=== PATIENT | male | born 1945 | race Caucasian/White ===

== ENCOUNTER 2022-01-23 17:14 | Inpatient (IN) | payer MEDICARE, OTHER ==
[~2022-01-23] VITALS: Ht 170.2 cm; Wt 99.4 kg
[2022-01-23 18:08] LABS: MEAN CORPUSCULAR HEMOGLOBIN 30.5 uug (23.8-33.4); MEAN CORPUSCULAR VOLUME 91.8 fL (73.0-96.2); PLATELET COUNT (AUTO) 340 K/uL (152-348)
[2022-01-23 18:26] LABS: HEMATOCRIT 20.2 % (36.7-47.1)
[2022-01-23] MEDS ORDERED: OMEP40CA21 GT (18:46)
[2022-01-23] MEDS ORDERED: HYDR-3972 GT (18:46)
[2022-01-23] MEDS ORDERED: ZINC50TA69 GT (18:46)
[2022-01-23] MEDS ORDERED: CYAN100T44 GT (18:46)
[2022-01-23] MEDS ORDERED: ATOR10TA GT (18:46)
[2022-01-23] MEDS ORDERED: OMEG1CAP55 GT (18:46)
[2022-01-23] MEDS ORDERED: ACET-2154 GT (18:46)
[2022-01-23] MEDS ORDERED: LORA-259 GT (18:46)
[2022-01-23] MEDS ORDERED: EPOE1VIA12 IJ (18:46)
[2022-01-23] MEDS ORDERED: ALBU1.257 NEB (18:46)
[2022-01-23] MEDS ORDERED: ASCO500C6 GT (18:46)
[2022-01-23] MEDS ORDERED: FERR325T30 GT (18:46)
[2022-01-23] MEDS ORDERED: CLON0.1T GT (18:46)
[2022-01-23] MEDS ORDERED: LEVE500T20 GT (18:46)
[2022-01-23] MEDS ORDERED: CHLORHEXIDINE PO (18:46)
[2022-01-23] MEDS ORDERED: INSU100V8 SQ (18:46)
[2022-01-23] MEDS ORDERED: METO-357 GT (18:46)
[2022-01-23] MEDS ORDERED: CALC1TAB30 GT (18:46)
[2022-01-23] MEDS ORDERED: MULT-594 GT (18:46)
[2022-01-23] MEDS ORDERED: SENN-18 GT (18:46)
[2022-01-23] MEDS ORDERED: ACET-73 GT (18:46)
[2022-01-23] MEDS ORDERED: MAGN400O6 GT (18:46)
[2022-01-23] MEDS ORDERED: DOCU100C36 GT (18:46)
[2022-01-23] MEDS ORDERED: INSU100V42 (18:46)
[2022-01-23 19:30] LABS: CARBON DIOXIDE 27 mmol/L (21-32); CHLORIDE 95 mmol/L (98-107); CREATININE 2.3 mg/dL (0.6-1.3); GLUCOSE 100 mg/dL (74-106); POTASSIUM 3.2 mmol/L (3.5-5.1); UREA NITROGEN, BLOOD 55 mg/dL (7-18)
[2022-01-23] MEDS ORDERED: LORAZEPAM 1 MG TABLET GT PRN (22:15)
[2022-01-23] MEDS ORDERED: MAGNESIUM HYDROXIDE 30 ML LIQUID UDC PO PRN (22:15)
[2022-01-23] MEDS ORDERED: HYDROCODONE/APAP 5-325MG TABLET GT PRN (22:15)
[2022-01-23] MEDS ORDERED: DEXTROSE 50% 50 ML DISP.SYRIN IV PRN (22:15)
[2022-01-23] MEDS ORDERED: REMEDY ESSENTIAL ZINC PASTE 113 GM TP PRN (22:15)
[2022-01-23] MEDS ORDERED: ALBUTEROL SULFATE 1.25 MG/3 ML NEBU NEB PRN (22:15)
[2022-01-23 23:30] VITALS: BP 118/55
[2022-01-24] VITALS (8 sets, daily range): BP systolic 104–124; BP diastolic 44–70
[2022-01-24] MEDS ORDERED: ACETAMINOPHEN 325 MG TABLET GT PRN (00:15)
[2022-01-24] MEDS: BLOOD SUGAR DIAGNOSTIC 1 EACH STRIP VI SCH ×5 (01:30→23:50)
[2022-01-24 06:41] LABS: PLATELET COUNT (AUTO) 315 K/uL (152-348)
[2022-01-24 06:46] LABS: MEAN CORPUSCULAR HEMOGLOBIN 30.9 uug (23.8-33.4); MEAN CORPUSCULAR VOLUME 91.3 fL (73.0-96.2)
[2022-01-24 07:33] LABS: ALANINE AMINOTRANSFERASE 9 U/L (16-63); ALKALINE PHOSPHATASE 175 U/L (50-136); ASPARTATE AMINOTRANSFERASE 10 U/L (15-37); BILIRUBIN,DIRECT 0.3 mg/dL (0.0-0.2); BILIRUBIN,TOTAL 0.7 mg/dL (0.2-1.0); CARBON DIOXIDE 29 mmol/L (21-32); CHLORIDE 95 mmol/L (98-107); CREATININE 2.4 mg/dL (0.6-1.3); FERRITIN 2797 ng/mL (26-388); GLUCOSE 119 mg/dL (74-106); MAGNESIUM 2.1 mg/dL (1.8-2.4); POTASSIUM 3.2 mmol/L (3.5-5.1); TOTAL PROTEIN, SERUM 6.9 g/dL (6.4-8.2); UREA NITROGEN, BLOOD 59 mg/dL (7-18)
[2022-01-24] MEDS ORDERED: MAGNESIUM HYDROXIDE 30 ML LIQUID UDC GT PRN (07:41)
[2022-01-24 08:00] LABS: HEMATOCRIT 18.4 % (36.7-47.1)
[2022-01-24 08:24] LABS: IRON, SERUM 38 ug/dL (50-175)
[2022-01-24] MEDS ORDERED: METOPROLOL SUCCINATE XL 50 MG TAB.SR.24H PO SCH (09:00)
[2022-01-24] MEDS ORDERED: levETIRAcetam 500 MG TABLET GT SCH (09:00)
[2022-01-24] MEDS: OMEGA-3 FATTY ACIDS/FISH OIL CAPSULE GT SCH (09:19)
[2022-01-24] MEDS: SENNOSIDES 1 TABLET GT SCH ×2 (09:20→17:48)
[2022-01-24] MEDS: MULTIVITAMINS,THERAPEUTIC TABLET GT SCH (09:20)
[2022-01-24] MEDS: PANTOPRAZOLE ORAL SUSPENSION 40 MG SUSPDR.PKT GT SCH (09:20)
[2022-01-24] MEDS: CALCIUM CARB/VITAMIN D 500MG-200UNITS TABLET GT SCH (09:20)
[2022-01-24] MEDS: ZINC SULFATE 220 MG CAPSULE GT SCH (09:20)
[2022-01-24] MEDS: METOPROLOL TARTRATE 50 MG TABLET PO SCH ×2 (09:21→20:26)
[2022-01-24] MEDS: levETIRAcetam 500 MG/5 ML LIQUID UDC GT SCH ×2 (09:23→17:48)
[2022-01-24] MEDS: NEPRO 1000 ML GT SCH (09:32)
[2022-01-24] MEDS ORDERED: CLONIDINE HCL 0.1 MG TABLET GT PRN (09:45)
[2022-01-24] MEDS ORDERED: FERROUS SULFATE 300 MG/5 ML LIQUID UDC PO SCH (11:00)
[2022-01-24] MEDS: DOCUSATE SODIUM 100 MG/10 ML LIQUID UDC GT SCH (14:13)
[2022-01-24] MEDS: POTASSIUM CHLORIDE 50 ML IV SCH ×3 (14:13→16:46)
[2022-01-24] MEDS: INSULIN REGULAR, HUMAN 300 UNIT/3 ML VIAL SQ PRN ×2 (17:52→23:52)
[2022-01-24] MEDS ORDERED: CYANOCOBALAMIN 100 MCG TABLET GT SCH (18:00)
[2022-01-24] MEDS: CYANOCOBALAMIN 1,000 MCG TABLET GT SCH (20:26)
[2022-01-24] MEDS: ATORVASTATIN 10 MG TABLET GT SCH (20:26)
[2022-01-24] MEDS: CHLORHEXIDINE GLUCONATE 15 ML MOUTHWASH MM SCH (20:27)
[2022-01-24] MEDS: THERAHONEY GEL 1.5 OZ TUBE TOP SCH (21:30)
[2022-01-24] MEDS: SODIUM HYPOCHLORITE 0.125% (QUARTER STRENGTH) 473 ML BOTTLE TP SCH (21:34)
[2022-01-25 00:03] VITALS: BP 124/51
[2022-01-25 04:15] VITALS: BP 126/73
[2022-01-25] MEDS: INSULIN REGULAR, HUMAN 300 UNIT/3 ML VIAL SQ PRN ×2 (05:41→11:44)
[2022-01-25] MEDS: BLOOD SUGAR DIAGNOSTIC 1 EACH STRIP VI SCH ×3 (05:45→18:10)
[2022-01-25 07:06] LABS: *IMMUNOGLOBULIN G, SERUM 2516 mg/dL (603-1613); IMMUNOGLOBULIN A, SERUM 292 mg/dL (61-437); IMMUNOGLOBULIN M, SERUM 47 mg/dL (15-143)
[2022-01-25 07:09] LABS: CARBON DIOXIDE 27 mmol/L (21-32); CHLORIDE 95 mmol/L (98-107); CREATININE 2.5 mg/dL (0.6-1.3); GLUCOSE 143 mg/dL (74-106); POTASSIUM 3.8 mmol/L (3.5-5.1); UREA NITROGEN, BLOOD 61 mg/dL (7-18)
[2022-01-25 07:56] LABS: ABG BASE EXCESS 0.4 mmol/L; ABG HCO3 23.9 mmol/L; ABG PCO2 33.5 mmHg (35.0-45.0); ABG PH 7.472 (7.350-7.450); ABG PO2 135.9 mmHg (75.0-100.0); ABG SITE LEFT RADIAL; ABG TOTAL HEMOGLOBIN 7.8 G/dL (13.5-18.0); COHb 0.4 % (0.5-1.5); MetHb 0.4 % (0.0-1.5); VENT MODE VENT - A/C; VT, ABG 500 mL
[2022-01-25] MEDS: OMEGA-3 FATTY ACIDS/FISH OIL CAPSULE GT SCH (08:58)
[2022-01-25] MEDS: PANTOPRAZOLE ORAL SUSPENSION 40 MG SUSPDR.PKT GT SCH (08:58)
[2022-01-25] MEDS: CALCIUM CARB/VITAMIN D 500MG-200UNITS TABLET GT SCH (08:58)
[2022-01-25] MEDS: METOPROLOL TARTRATE 50 MG TABLET PO SCH ×2 (09:02→20:44)
[2022-01-25] MEDS: SENNOSIDES 1 TABLET GT SCH ×2 (09:02→16:09)
[2022-01-25] MEDS: MULTIVITAMINS,THERAPEUTIC TABLET GT SCH (09:02)
[2022-01-25] MEDS: ZINC SULFATE 220 MG CAPSULE GT SCH (09:02)
[2022-01-25] MEDS: CHLORHEXIDINE GLUCONATE 15 ML MOUTHWASH MM SCH ×2 (09:03→20:44)
[2022-01-25] MEDS: DOCUSATE SODIUM 100 MG/10 ML LIQUID UDC GT SCH (09:03)
[2022-01-25] MEDS: THERAHONEY GEL 1.5 OZ TUBE TOP SCH ×2 (09:03→09:05)
[2022-01-25] MEDS: levETIRAcetam 500 MG/5 ML LIQUID UDC GT SCH ×2 (09:03→16:09)
[2022-01-25] MEDS: SODIUM HYPOCHLORITE 0.125% (QUARTER STRENGTH) 473 ML BOTTLE TP SCH (09:05)
[2022-01-25 09:06] LABS: A/G RATIO 0.4 (0.7-1.7); ALBUMIN 1.7 g/dL (2.9-4.4); ALPHA-1-GLOBULIN 0.5 g/dL (0.0-0.4); BETA GLOBULIN 0.9 g/dL (0.7-1.3); GAMMA GLOBULIN 2.1 g/dL (0.4-1.8); GLOBULIN, TOTAL 4.6 g/dL (2.2-3.9); M-SPIKE Not Observed g/dL (Not Observed)
[2022-01-25 09:47] LABS: HEMATOCRIT 21.7 % (36.7-47.1); MEAN CORPUSCULAR HEMOGLOBIN 31.4 uug (23.8-33.4); MEAN CORPUSCULAR VOLUME 93.4 fL (73.0-96.2); PLATELET COUNT (AUTO) 317 K/uL (152-348)
[2022-01-25 11:02] VITALS: BP 134/64
[2022-01-25 15:03] VITALS: BP 134/60
[2022-01-25] MEDS: EPOETIN ALFA-EPBX 10,000 UNIT/ML VIAL SQ SCH (16:09)
[2022-01-25 19:51] VITALS: BP 150/77
[2022-01-25] MEDS: CYANOCOBALAMIN 1,000 MCG TABLET GT SCH (20:44)
[2022-01-25] MEDS: ATORVASTATIN 10 MG TABLET GT SCH (20:44)
[2022-01-26] VITALS: BP 132/74
[2022-01-26] MEDS: BLOOD SUGAR DIAGNOSTIC 1 EACH STRIP VI SCH ×4 (00:17→17:37)
[2022-01-26] MEDS: INSULIN REGULAR, HUMAN 300 UNIT/3 ML VIAL SQ PRN ×4 (00:22→17:43)
[2022-01-26] MEDS: NEPRO 1000 ML GT SCH ×2 (00:34→23:00)
[2022-01-26 03:55] VITALS: BP 142/55
[2022-01-26 06:18] LABS: HEMATOCRIT 22.2 % (36.7-47.1); MEAN CORPUSCULAR VOLUME 92.2 fL (73.0-96.2); PLATELET COUNT (AUTO) 313 K/uL (152-348)
[2022-01-26 06:24] LABS: CARBON DIOXIDE 27 mmol/L (21-32); CHLORIDE 97 mmol/L (98-107); CREATININE 2.6 mg/dL (0.6-1.3); GLUCOSE 166 mg/dL (74-106); MAGNESIUM 2.3 mg/dL (1.8-2.4); POTASSIUM 3.6 mmol/L (3.5-5.1); UREA NITROGEN, BLOOD 65 mg/dL (7-18)
[2022-01-26 07:35] VITALS: BP 128/72
[2022-01-26] MEDS: levETIRAcetam 500 MG/5 ML LIQUID UDC GT SCH ×2 (09:11→17:40)
[2022-01-26] MEDS: MULTIVITAMINS,THERAPEUTIC TABLET GT SCH (09:11)
[2022-01-26] MEDS: SENNOSIDES 1 TABLET GT SCH ×2 (09:11→17:41)
[2022-01-26] MEDS: PANTOPRAZOLE ORAL SUSPENSION 40 MG SUSPDR.PKT GT SCH (09:11)
[2022-01-26] MEDS: DOCUSATE SODIUM 100 MG/10 ML LIQUID UDC GT SCH (09:11)
[2022-01-26] MEDS: OMEGA-3 FATTY ACIDS/FISH OIL CAPSULE GT SCH (09:11)
[2022-01-26] MEDS: METOPROLOL TARTRATE 50 MG TABLET PO SCH ×2 (09:12→21:02)
[2022-01-26] MEDS: CHLORHEXIDINE GLUCONATE 15 ML MOUTHWASH MM SCH ×2 (09:12→21:01)
[2022-01-26] MEDS: ZINC SULFATE 220 MG CAPSULE GT SCH (09:12)
[2022-01-26] MEDS: CALCIUM CARB/VITAMIN D 500MG-200UNITS TABLET GT SCH (09:12)
[2022-01-26] MEDS: THERAHONEY GEL 1.5 OZ TUBE TOP SCH ×2 (09:13)
[2022-01-26] MEDS: SODIUM HYPOCHLORITE 0.125% (QUARTER STRENGTH) 473 ML BOTTLE TP SCH (09:14)
[2022-01-26] MEDS ORDERED: BISACODYL 10 MG SUPP.RECT RC PRN (09:15)
[2022-01-26] MEDS: MIRALAX 17 GM POWD.PACK PO SCH ×2 (11:06→17:40)
[2022-01-26 15:06] VITALS: BP 139/70
[2022-01-26 20:07] VITALS: BP 137/80
[2022-01-26] MEDS: ATORVASTATIN 10 MG TABLET GT SCH (21:02)
[2022-01-26] MEDS: CYANOCOBALAMIN 1,000 MCG TABLET GT SCH (21:02)
[2022-01-26 22:31] VITALS: BP 144/79
[2022-01-27] MEDS: INSULIN REGULAR, HUMAN 300 UNIT/3 ML VIAL SQ PRN ×3 (00:40→12:22)
[2022-01-27] MEDS: BLOOD SUGAR DIAGNOSTIC 1 EACH STRIP VI SCH ×4 (00:40→17:38)
[2022-01-27 03:30] VITALS: BP 131/74
[2022-01-27 06:20] LABS: MEAN CORPUSCULAR HEMOGLOBIN 31.2 uug (23.8-33.4); MEAN CORPUSCULAR VOLUME 93.8 fL (73.0-96.2); PLATELET COUNT (AUTO) 298 K/uL (152-348)
[2022-01-27 06:37] LABS: CARBON DIOXIDE 27 mmol/L (21-32); CHLORIDE 97 mmol/L (98-107); CREATININE 2.2 mg/dL (0.6-1.3); GLUCOSE 164 mg/dL (74-106); MAGNESIUM 2.1 mg/dL (1.8-2.4); PHOSPHOROUS 2.8 mg/dL (2.5-4.9); POTASSIUM 3.1 mmol/L (3.5-5.1); UREA NITROGEN, BLOOD 51 mg/dL (7-18)
[2022-01-27] MEDS: levETIRAcetam 500 MG/5 ML LIQUID UDC GT SCH ×2 (09:23→17:32)
[2022-01-27] MEDS: DOCUSATE SODIUM 100 MG/10 ML LIQUID UDC GT SCH (09:23)
[2022-01-27] MEDS: MULTIVITAMINS,THERAPEUTIC TABLET GT SCH (09:24)
[2022-01-27] MEDS: OMEGA-3 FATTY ACIDS/FISH OIL CAPSULE GT SCH (09:24)
[2022-01-27] MEDS: CALCIUM CARB/VITAMIN D 500MG-200UNITS TABLET GT SCH (09:24)
[2022-01-27] MEDS: MIRALAX 17 GM POWD.PACK PO SCH ×2 (09:34→17:32)
[2022-01-27] MEDS: METOPROLOL TARTRATE 50 MG TABLET PO SCH ×2 (09:34→20:37)
[2022-01-27] MEDS: SENNOSIDES 1 TABLET GT SCH ×2 (09:35→17:32)
[2022-01-27] MEDS: PANTOPRAZOLE ORAL SUSPENSION 40 MG SUSPDR.PKT GT SCH (09:35)
[2022-01-27] MEDS: ZINC SULFATE 220 MG CAPSULE GT SCH (09:35)
[2022-01-27] MEDS: CHLORHEXIDINE GLUCONATE 15 ML MOUTHWASH MM SCH ×2 (09:41→20:36)
[2022-01-27] MEDS: THERAHONEY GEL 1.5 OZ TUBE TOP SCH ×2 (09:42)
[2022-01-27] MEDS: SODIUM HYPOCHLORITE 0.125% (QUARTER STRENGTH) 473 ML BOTTLE TP SCH (09:43)
[2022-01-27] MEDS ORDERED: POTASSIUM CHLORIDE 20 MEQ POWDER PACKET GT ONE (10:00)
[2022-01-27 11:00] VITALS: BP 145/77
[2022-01-27 15:05] LABS: *OCCULT BLOOD STOOL POSITIVE (NEGATIVE)
[2022-01-27 16:00] VITALS: BP 135/73
[2022-01-27] MEDS: NEPRO 1000 ML GT SCH (19:35)
[2022-01-27 20:12] VITALS: BP 136/68
[2022-01-27] MEDS: CYANOCOBALAMIN 1,000 MCG TABLET GT SCH (20:36)
[2022-01-27] MEDS: ATORVASTATIN 10 MG TABLET GT SCH (20:36)
[2022-01-28 00:03] VITALS: BP 116/63
[2022-01-28] MEDS: INSULIN REGULAR, HUMAN 300 UNIT/3 ML VIAL SQ PRN ×5 (00:34→23:25)
[2022-01-28] MEDS: BLOOD SUGAR DIAGNOSTIC 1 EACH STRIP VI SCH ×5 (00:34→23:24)
[2022-01-28 04:12] VITALS: BP 108/46
[2022-01-28 06:06] LABS: HEMATOCRIT 24.8 % (36.7-47.1); MEAN CORPUSCULAR HEMOGLOBIN 30.4 uug (23.8-33.4); MEAN CORPUSCULAR VOLUME 95.2 fL (73.0-96.2); PLATELET COUNT (AUTO) 330 K/uL (152-348)
[2022-01-28 06:18] LABS: CARBON DIOXIDE 27 mmol/L (21-32); CHLORIDE 98 mmol/L (98-107); CREATININE 2.2 mg/dL (0.6-1.3); GLUCOSE 161 mg/dL (74-106); MAGNESIUM 2.1 mg/dL (1.8-2.4); PHOSPHOROUS 3.1 mg/dL (2.5-4.9); POTASSIUM 3.7 mmol/L (3.5-5.1); UREA NITROGEN, BLOOD 55 mg/dL (7-18)
[2022-01-28] MEDS: OMEGA-3 FATTY ACIDS/FISH OIL CAPSULE GT SCH (08:20)
[2022-01-28] MEDS: CALCIUM CARB/VITAMIN D 500MG-200UNITS TABLET GT SCH (08:20)
[2022-01-28] MEDS: levETIRAcetam 500 MG/5 ML LIQUID UDC GT SCH ×2 (08:20→17:13)
[2022-01-28] MEDS: SENNOSIDES 1 TABLET GT SCH ×2 (08:20→17:00)
[2022-01-28] MEDS: PANTOPRAZOLE ORAL SUSPENSION 40 MG SUSPDR.PKT GT SCH (08:20)
[2022-01-28] MEDS: ZINC SULFATE 220 MG CAPSULE GT SCH (08:20)
[2022-01-28] MEDS: METOPROLOL TARTRATE 50 MG TABLET PO SCH ×2 (08:21→20:44)
[2022-01-28] MEDS: CHLORHEXIDINE GLUCONATE 15 ML MOUTHWASH MM SCH ×2 (08:21→21:04)
[2022-01-28] MEDS: MIRALAX 17 GM POWD.PACK PO SCH ×2 (08:21→17:00)
[2022-01-28] MEDS: DOCUSATE SODIUM 100 MG/10 ML LIQUID UDC GT SCH (09:17)
[2022-01-28] MEDS: MULTIVITAMINS,THERAPEUTIC TABLET GT SCH (09:17)
[2022-01-28] MEDS: THERAHONEY GEL 1.5 OZ TUBE TOP SCH ×2 (09:18→09:19)
[2022-01-28] MEDS: SODIUM HYPOCHLORITE 0.125% (QUARTER STRENGTH) 473 ML BOTTLE TP SCH (09:19)
[2022-01-28 11:33] VITALS: BP 119/65
[2022-01-28] MEDS ORDERED: ALBUMIN HUMAN 25% 100 ML IV PRN (12:30)
[2022-01-28] MEDS: EPOETIN ALFA-EPBX 10,000 UNIT/ML VIAL SQ SCH (15:18)
[2022-01-28 16:00] VITALS: BP 107/65
[2022-01-28 18:08] LABS: *BILIRUBIN,URIN NEGATIVE (NEGATIVE); *BLOOD, URINE 3+ (NEGATIVE); *CLARITY,URINE CLOUDY (CLEAR); *COLOR,URINE YELLOW (YELLOW); *KETONES,URINE NEGATIVE (NEGATIVE); *UROBILINOGEN,URINE 0.2 E.U./dl (NORMAL); LEUKOCYTE ESTERASE ,URINE 3+ (NEGATIVE); NITRITE, URINE POSITIVE (NEGATIVE); PH,URINE 8.5 (5.0-8.0); UGLUCOSE NEGATIVE (NEGATIVE)
[2022-01-28 19:57] LABS: BACTERIA,URINE FEW /HPF (NONE SEEN); RBC,URINE TNTC /HPF (0-3); SQUAMOUS EPITHELIAL CELL,UR FEW /HPF (NONE SEEN); WBC,URINE TNTC /HPF (0-3)
[2022-01-28 20:09] VITALS: BP 100/45
[2022-01-28] MEDS: ATORVASTATIN 10 MG TABLET GT SCH (20:44)
[2022-01-28] MEDS: CYANOCOBALAMIN 1,000 MCG TABLET GT SCH (20:44)
[2022-01-28] MEDS ORDERED: CEFTRIAXONE /D5W 50ML IVPB **ER PYXIS IV ONE (22:40)
[2022-01-28] MEDS: CEFTRIAXONE 1 G in IV DEXTROSE 5% 50 ML IV SCH (23:01)
[2022-01-29] VITALS (9 sets, daily range): BP systolic 97–124; BP diastolic 45–64
[2022-01-29] MEDS: BLOOD SUGAR DIAGNOSTIC 1 EACH STRIP VI SCH ×3 (05:35→17:18)
[2022-01-29] MEDS: INSULIN REGULAR, HUMAN 300 UNIT/3 ML VIAL SQ PRN ×2 (05:40→17:25)
[2022-01-29 06:48] LABS: CARBON DIOXIDE 24 mmol/L (21-32); CHLORIDE 99 mmol/L (98-107); CREATININE 2.2 mg/dL (0.6-1.3); GLUCOSE 178 mg/dL (74-106); MAGNESIUM 2.3 mg/dL (1.8-2.4); POTASSIUM 4.1 mmol/L (3.5-5.1); UREA NITROGEN, BLOOD 57 mg/dL (7-18)
[2022-01-29 07:21] LABS: MEAN CORPUSCULAR HEMOGLOBIN 31.4 uug (23.8-33.4); MEAN CORPUSCULAR VOLUME 93.9 fL (73.0-96.2); PLATELET COUNT (AUTO) 273 K/uL (152-348)
[2022-01-29 07:29] LABS: HEMATOCRIT 20.3 % (36.7-47.1)
[2022-01-29] MEDS: levETIRAcetam 500 MG/5 ML LIQUID UDC GT SCH ×2 (09:37→17:22)
[2022-01-29] MEDS: DOCUSATE SODIUM 100 MG/10 ML LIQUID UDC GT SCH (09:37)
[2022-01-29] MEDS: OMEGA-3 FATTY ACIDS/FISH OIL CAPSULE GT SCH (09:38)
[2022-01-29] MEDS: ZINC SULFATE 220 MG CAPSULE GT SCH (09:38)
[2022-01-29] MEDS: MIRALAX 17 GM POWD.PACK PO SCH ×2 (09:38→17:22)
[2022-01-29] MEDS: MULTIVITAMINS,THERAPEUTIC TABLET GT SCH (09:38)
[2022-01-29] MEDS: PANTOPRAZOLE SODIUM 40 MG VIAL IV SCH ×2 (09:38→21:06)
[2022-01-29] MEDS: CALCIUM CARB/VITAMIN D 500MG-200UNITS TABLET GT SCH (09:38)
[2022-01-29] MEDS: THERAHONEY GEL 1.5 OZ TUBE TOP SCH ×2 (09:39)
[2022-01-29] MEDS: CHLORHEXIDINE GLUCONATE 15 ML MOUTHWASH MM SCH (09:39)
[2022-01-29] MEDS: SODIUM HYPOCHLORITE 0.125% (QUARTER STRENGTH) 473 ML BOTTLE TP SCH (09:40)
[2022-01-29] MEDS: METOPROLOL TARTRATE 50 MG TABLET PO SCH ×2 (09:41→21:07)
[2022-01-29] MEDS: SENNOSIDES 1 TABLET GT SCH ×2 (09:41→17:23)
[2022-01-29 17:19] LABS: NEUTROPHILS % (MANUAL) 0 % (42-75)
[2022-01-29] MEDS: CYANOCOBALAMIN 1,000 MCG TABLET GT SCH (21:05)
[2022-01-29] MEDS: CEFTRIAXONE 1 G in IV DEXTROSE 5% 50 ML IV SCH (21:07)
[2022-01-29] MEDS: ATORVASTATIN 10 MG TABLET GT SCH (21:07)
[2022-01-30 00:07] VITALS: BP 88/50
[2022-01-30] MEDS: INSULIN REGULAR, HUMAN 300 UNIT/3 ML VIAL SQ PRN ×3 (00:39→12:05)
[2022-01-30] MEDS: CHLORHEXIDINE GLUCONATE 15 ML MOUTHWASH MM SCH ×3 (00:43→22:46)
[2022-01-30] MEDS: BLOOD SUGAR DIAGNOSTIC 1 EACH STRIP VI SCH ×4 (00:43→17:39)
[2022-01-30 04:14] VITALS: BP 127/47
[2022-01-30 06:46] LABS: HEMATOCRIT 24.3 % (36.7-47.1); MEAN CORPUSCULAR HEMOGLOBIN 31.6 uug (23.8-33.4); MEAN CORPUSCULAR VOLUME 96.3 fL (73.0-96.2); PLATELET COUNT (AUTO) 261 K/uL (152-348)
[2022-01-30 07:16] LABS: CARBON DIOXIDE 26 mmol/L (21-32); CHLORIDE 100 mmol/L (98-107); CREATININE 2.2 mg/dL (0.6-1.3); GLUCOSE 164 mg/dL (74-106); POTASSIUM 3.7 mmol/L (3.5-5.1); UREA NITROGEN, BLOOD 61 mg/dL (7-18)
[2022-01-30] MEDS: levETIRAcetam 500 MG/5 ML LIQUID UDC GT SCH ×2 (08:38→17:23)
[2022-01-30] MEDS: SENNOSIDES 1 TABLET GT SCH ×2 (08:38→17:23)
[2022-01-30] MEDS: ZINC SULFATE 220 MG CAPSULE GT SCH (08:38)
[2022-01-30] MEDS: OMEGA-3 FATTY ACIDS/FISH OIL CAPSULE GT SCH (08:38)
[2022-01-30] MEDS: DOCUSATE SODIUM 100 MG/10 ML LIQUID UDC GT SCH (08:38)
[2022-01-30] MEDS: MULTIVITAMINS,THERAPEUTIC TABLET GT SCH (08:38)
[2022-01-30] MEDS: CALCIUM CARB/VITAMIN D 500MG-200UNITS TABLET GT SCH (08:38)
[2022-01-30] MEDS: MIRALAX 17 GM POWD.PACK PO SCH ×2 (08:39→17:24)
[2022-01-30] MEDS: THERAHONEY GEL 1.5 OZ TUBE TOP SCH ×2 (08:39)
[2022-01-30] MEDS: SODIUM HYPOCHLORITE 0.125% (QUARTER STRENGTH) 473 ML BOTTLE TP SCH (08:40)
[2022-01-30] MEDS: PANTOPRAZOLE SODIUM 40 MG VIAL IV SCH ×2 (08:40→22:36)
[2022-01-30] MEDS: METOPROLOL TARTRATE 50 MG TABLET PO SCH ×2 (08:44→22:55)
[2022-01-30 11:41] VITALS: BP 105/55
[2022-01-30] MEDS: EPOETIN ALFA-EPBX 10,000 UNIT/ML VIAL SQ SCH (15:01)
[2022-01-30 16:00] VITALS: BP 107/51
[2022-01-30 20:23] VITALS: BP 101/65
[2022-01-30 22:28] VITALS: BP 101/69
[2022-01-30] MEDS: CEFTRIAXONE 1 G in IV DEXTROSE 5% 50 ML IV SCH (22:36)
[2022-01-30] MEDS: CYANOCOBALAMIN 1,000 MCG TABLET GT SCH (22:36)
[2022-01-30] MEDS: ATORVASTATIN 10 MG TABLET GT SCH (22:36)
[2022-01-31] MEDS: BLOOD SUGAR DIAGNOSTIC 1 EACH STRIP VI SCH ×5 (00:40→23:48)
[2022-01-31 03:59] VITALS: BP 107/52
[2022-01-31 07:01] LABS: HEMATOCRIT 21.9 % (36.7-47.1); MEAN CORPUSCULAR HEMOGLOBIN 31.8 uug (23.8-33.4); MEAN CORPUSCULAR VOLUME 94.8 fL (73.0-96.2); PLATELET COUNT (AUTO) 225 K/uL (152-348)
[2022-01-31 07:17] LABS: CARBON DIOXIDE 25 mmol/L (21-32); CHLORIDE 101 mmol/L (98-107); CREATININE 1.8 mg/dL (0.6-1.3); GLUCOSE 162 mg/dL (74-106); POTASSIUM 3.4 mmol/L (3.5-5.1); UREA NITROGEN, BLOOD 44 mg/dL (7-18)
[2022-01-31] MEDS: DOCUSATE SODIUM 100 MG/10 ML LIQUID UDC GT SCH (09:35)
[2022-01-31] MEDS: SENNOSIDES 1 TABLET GT SCH ×2 (09:35→17:06)
[2022-01-31] MEDS: levETIRAcetam 500 MG/5 ML LIQUID UDC GT SCH ×2 (09:35→17:06)
[2022-01-31] MEDS: MIRALAX 17 GM POWD.PACK PO SCH ×2 (09:35→17:07)
[2022-01-31] MEDS: CALCIUM CARB/VITAMIN D 500MG-200UNITS TABLET GT SCH (09:35)
[2022-01-31] MEDS: MULTIVITAMINS,THERAPEUTIC TABLET GT SCH (09:35)
[2022-01-31] MEDS: CHLORHEXIDINE GLUCONATE 15 ML MOUTHWASH MM SCH ×2 (09:35→20:56)
[2022-01-31] MEDS: ZINC SULFATE 220 MG CAPSULE GT SCH (09:35)
[2022-01-31] MEDS: PANTOPRAZOLE SODIUM 40 MG VIAL IV SCH ×2 (09:35→20:59)
[2022-01-31] MEDS: OMEGA-3 FATTY ACIDS/FISH OIL CAPSULE GT SCH (09:36)
[2022-01-31] MEDS: METOPROLOL TARTRATE 50 MG TABLET PO SCH ×2 (09:47→20:56)
[2022-01-31] MEDS: SODIUM HYPOCHLORITE 0.125% (QUARTER STRENGTH) 473 ML BOTTLE TP SCH (09:48)
[2022-01-31] MEDS: THERAHONEY GEL 1.5 OZ TUBE TOP SCH ×2 (09:48→09:49)
[2022-01-31] MEDS ORDERED: POTASSIUM CHLORIDE 50 ML IV SCH (11:00)
[2022-01-31 11:12] VITALS: BP 138/68
[2022-01-31 15:15] VITALS: BP 108/47
[2022-01-31 20:35] VITALS: BP 109/58
[2022-01-31] MEDS: CYANOCOBALAMIN 1,000 MCG TABLET GT SCH (20:55)
[2022-01-31] MEDS: ATORVASTATIN 10 MG TABLET GT SCH (20:55)
[2022-01-31] MEDS: CEFTRIAXONE 1 G in IV DEXTROSE 5% 50 ML IV SCH (20:59)
[2022-01-31 23:25] VITALS: BP 99/45
[2022-01-31 23:40] VITALS: BP 105/44
[2022-02-01 00:40] VITALS: BP 98/41
[2022-02-01 01:36] VITALS: BP 100/48
[2022-02-01 01:58] VITALS: BP 106/49
[2022-02-01 03:59] VITALS: BP 121/52
[2022-02-01] MEDS: BLOOD SUGAR DIAGNOSTIC 1 EACH STRIP VI SCH (05:47)
[2022-02-01] MEDS: INSULIN REGULAR, HUMAN 300 UNIT/3 ML VIAL SQ PRN (05:49)
[2022-02-01 07:09] LABS: HEMATOCRIT 27.9 % (36.7-47.1); MEAN CORPUSCULAR HEMOGLOBIN 31.2 uug (23.8-33.4); MEAN CORPUSCULAR VOLUME 96.7 fL (73.0-96.2); PLATELET COUNT (AUTO) 186 K/uL (152-348)
[2022-02-01] MEDS: NEPRO 1000 ML GT SCH (07:09)
[2022-02-01 07:24] LABS: CARBON DIOXIDE 25 mmol/L (21-32); CHLORIDE 101 mmol/L (98-107); CREATININE 1.9 mg/dL (0.6-1.3); GLUCOSE 158 mg/dL (74-106); POTASSIUM 4.2 mmol/L (3.5-5.1); UREA NITROGEN, BLOOD 51 mg/dL (7-18)
[2022-02-01] MEDS ORDERED: PANT40TA2 GT (07:39)
[2022-02-01] MEDS: MIRALAX 17 GM POWD.PACK PO SCH (08:45)
[2022-02-01] MEDS: DOCUSATE SODIUM 100 MG/10 ML LIQUID UDC GT SCH (08:45)
[2022-02-01] MEDS: CALCIUM CARB/VITAMIN D 500MG-200UNITS TABLET GT SCH (08:46)
[2022-02-01] MEDS: SENNOSIDES 1 TABLET GT SCH (08:46)
[2022-02-01] MEDS: levETIRAcetam 500 MG/5 ML LIQUID UDC GT SCH (08:46)
[2022-02-01] MEDS: MULTIVITAMINS,THERAPEUTIC TABLET GT SCH (08:46)
[2022-02-01] MEDS: OMEGA-3 FATTY ACIDS/FISH OIL CAPSULE GT SCH (08:46)
[2022-02-01] MEDS: METOPROLOL TARTRATE 50 MG TABLET PO SCH (08:51)
[2022-02-01] MEDS: CHLORHEXIDINE GLUCONATE 15 ML MOUTHWASH MM SCH (08:54)
[2022-02-01] MEDS: ZINC SULFATE 220 MG CAPSULE GT SCH (08:55)
[2022-02-01] MEDS ORDERED: PANTOPRAZOLE ORAL SUSPENSION 40 MG SUSPDR.PKT GT SCH (09:00)
[2022-02-01 11:04] VITALS: BP 100/50
[2022-02-01 14:06] LABS: *PEU ALBUMIN, UR 10.6 % (.); *PEU ALPHA-2-GLOBULIN, UR 18.8 % (.); *PEU GAMMA GLOBULIN, UR 24.4 % (.); *PEU PROTEIN, TOTAL, UR 50.7 mg/dL (Not Estab.); *PEUALPHA-1-GLOBULIN, UR 9.5 % (.); *PEUBETA GLOBULIN, UR 36.7 % (.)
== END 2022-02-01 13:45 | DRG 811 ==
LOC: ER 17:17 → TELE3 23:17 → MEDSURG3 01-31 10:25
PROVIDERS: ADMIT Nurse Practitioner Family; ATTEND Nurse Practitioner Family
PROC: 5A1955Z Respiratory Ventilation, Greater than 96 Consecutive Hours (ICD-10-PCS; principal; 2022-01-23)
PROC: 05HA33Z Insertion of Infusion Device into Left Brachial Vein, Percutaneous Approach (ICD-10-PCS; 2022-01-23)
PROC: 30243P1 Transfusion of Nonautologous Frozen Red Cells into Central Vein, Percutaneous Approach (ICD-10-PCS; 2022-01-24)
PROC: 05HA33Z Insertion of Infusion Device into Left Brachial Vein, Percutaneous Approach (ICD-10-PCS; 2022-01-24)
PROC: 5A1D70Z Performance of Urinary Filtration, Intermittent, Less than 6 Hours Per Day (ICD-10-PCS; 2022-01-28)
PROC: 05H933Z Insertion of Infusion Device into Right Brachial Vein, Percutaneous Approach (ICD-10-PCS; 2022-01-29)
DX: D50.0 Iron deficiency anemia secondary to blood loss (chronic) (principal); E43 Unspecified severe protein-calorie malnutrition; G93.41 Metabolic encephalopathy; L89.154 Pressure ulcer of sacral region, stage 4; L89.224 Pressure ulcer of left hip, stage 4; L89.214 Pressure ulcer of right hip, stage 4; L89.613 Pressure ulcer of right heel, stage 3; N18.6 End stage renal disease; R53.2 Functional quadriplegia; I13.2 Hypertensive heart and chronic kidney disease with heart failure and with stage 5 chronic kidney disease, or end stage renal disease; J96.11 Chronic respiratory failure with hypoxia; N39.0 Urinary tract infection, site not specified; D68.59 Other primary thrombophilia; M86.68 Other chronic osteomyelitis, other site; Z99.11 Dependence on respirator [ventilator] status; K56.7 Ileus, unspecified; D63.1 Anemia in chronic kidney disease; E87.6 Hypokalemia; E11.22 Type 2 diabetes mellitus with diabetic chronic kidney disease; I50.9 Heart failure, unspecified; M24.562 Contracture, left knee; M24.561 Contracture, right knee; B96.89 Other specified bacterial agents as the cause of diseases classified elsewhere; G40.909 Epilepsy, unspecified, not intractable, without status epilepticus; E11.69 Type 2 diabetes mellitus with other specified complication; Z88.1 Allergy status to other antibiotic agents; J43.9 Emphysema, unspecified; Z87.440 Personal history of urinary (tract) infections; Z87.01 Personal history of pneumonia (recurrent); N40.0 Benign prostatic hyperplasia without lower urinary tract symptoms; R13.10 Dysphagia, unspecified; Z93.0 Tracheostomy status; Z93.1 Gastrostomy status; Z99.2 Dependence on renal dialysis; D47.2 Monoclonal gammopathy; Z86.73 Personal history of transient ischemic attack (TIA), and cerebral infarction without residual deficits; Z79.4 Long term (current) use of insulin; E78.5 Hyperlipidemia, unspecified; L40.9 Psoriasis, unspecified; Z20.822 Contact with and (suspected) exposure to COVID-19
CPT/HCPCS: 36415; 36600; 70030-TC; 71045; 74018; 82378; 82746; 82784; 83550; 83735; 84100; 84155; 84165; 84166; 84443; 85025; 86334; 86850; 86900; 86901; 86920; 87040; 87086; 94002; 94003; 94760; A4663; A6209; A6213; C9113; G0378; J0696; J0885; J1815; J3480; J7040; P9016; P9047

== ENCOUNTER 2022-03-25 17:46 | Inpatient (IN) | payer MEDICARE, OTHER ==
[~2022-03-25] VITALS: Ht 182.9 cm; Wt 58.1 kg
[~2022-03-25 17:46] MED LIST: ACET-2154 GT; ACET-73 GT; ALBU1.257 NEB; ASCO500C6 GT; ATOR10TA GT; CALC1TAB30 GT; CHLORHEXIDINE PO; CLON0.1T GT; CYAN100T44 GT; DOCU100C36 GT; EPOE1VIA12 SQ; FERR325T30 GT; HYDR-3972 GT; INSU100V42; INSU100V8 SQ; LEVE500T20 GT; LORA-259 GT; MAGN400O6 GT; METO-357 GT; MULT-594 GT; OMEG1CAP55 GT; PANT40TA2 GT; SENN-18 GT; ZINC50TA69 GT
[2022-03-25] MEDS ORDERED: CEFTRIAXONE 1 G in IV DEXTROSE 5% 50 ML IV ONE (18:00)
[2022-03-25] MEDS ORDERED: IV NORMAL SALINE 1000 ML BAG IV ONE ×3 (18:00→23:00)
--- NOTE | 2022-03-25 18:17 | NUR ---
RECEIVED PT TRACH WITH PORTEX NO. 9 BEING BAGGED BY PARAMEDICS. PLACED ON VENT OBANDO WITH SETTINGS OF AC 14 VT 550 AND FIO2 OF 50% STILL WAITING FOR ORDERS.
[2022-03-25 18:25] LABS: HEMATOCRIT 25.5 % (36.7-47.1); MEAN CORPUSCULAR VOLUME 92.5 fL (73.0-96.2); PLATELET COUNT (AUTO) 220 K/uL (152-348)
[2022-03-25 18:32] LABS: CARBON DIOXIDE 29 mmol/L (21-32); CHLORIDE 93 mmol/L (98-107); CREATININE 1.9 mg/dL (0.6-1.3); GLUCOSE 156 mg/dL (74-106); UREA NITROGEN, BLOOD 61 mg/dL (7-18)
[2022-03-25 18:44] LABS: ALANINE AMINOTRANSFERASE 24 U/L (16-63); ALKALINE PHOSPHATASE 263 U/L (50-136); ASPARTATE AMINOTRANSFERASE 11 U/L (15-37); BILIRUBIN,DIRECT 0.2 mg/dL (0.0-0.2); BILIRUBIN,TOTAL 0.4 mg/dL (0.2-1.0); TOTAL PROTEIN, SERUM 9.5 g/dL (6.4-8.2)
[2022-03-25] MEDS ORDERED: POTASSIUM CHLORIDE 50 ML IV SCH (19:00)
[2022-03-25] MEDS ORDERED: MEROPENEM 1 G in IV NORMAL SALINE 100 ML IV ONE (19:15)
--- NOTE | 2022-03-25 19:30 | NUR ---
INFORMED DR PHILIP LACTIC ACID 2.3
--- NOTE | 2022-03-25 19:43 | NUR ---
Pt taken to CT via transport.
--- NOTE | 2022-03-25 19:46 | NUR ---
notified [facility] to call in PICC RN for IV placement.
--- NOTE | 2022-03-25 19:53 | NUR ---
BACK FROM CT
[2022-03-25] MEDS ORDERED: MEROPENEM 1GM/NS 100ML IVPB **ER PYXIS ONLY IV ONE (20:35)
[2022-03-25] MEDS ORDERED: CEFTRIAXONE /D5W 50ML IVPB **ER PYXIS IV ONE (20:35)
[2022-03-25] MEDS ORDERED: POTASSIUM CHLORIDE 50 ML ONE (20:35)
[2022-03-25] MEDS ORDERED: VECURONIUM BROMIDE 10 MG VIAL IV ONE (20:45)
[2022-03-25 21:15] LABS: *BILIRUBIN,URIN NEGATIVE (NEGATIVE); *BLOOD, URINE 2+ (NEGATIVE); *CLARITY,URINE CLOUDY (CLEAR); *COLOR,URINE LIGHT YELLOW (YELLOW); *KETONES,URINE NEGATIVE (NEGATIVE); *UROBILINOGEN,URINE 0.2 E.U./dl (NORMAL); LEUKOCYTE ESTERASE ,URINE 3+ (NEGATIVE); NITRITE, URINE NEGATIVE (NEGATIVE); UGLUCOSE NEGATIVE (NEGATIVE)
[2022-03-25 21:26] LABS: BACTERIA,URINE MANY /HPF (NONE SEEN); RBC,URINE 20-50 /HPF (0-3); SQUAMOUS EPITHELIAL CELL,UR FEW /HPF (NONE SEEN); WBC,URINE TNTC /HPF (0-3)
--- NOTE | 2022-03-25 21:47 | NUR ---
Treatment done to right hip area and sacral area with saline and cover with wet to dry dressing. Right hip measures 6x2x2.5 tunneling. Sacrum measures [id number]. Gene. heel with dressing clean and intact.
[2022-03-25] MEDS ORDERED: LINEZOLID 600 MG TABLET PO ONE (22:15)
[2022-03-25] MEDS ORDERED: MEROPENEM 500 MG in IV NORMAL SALINE 50 ML IV SCH ×2 (22:15→23:42)
[2022-03-25] MEDS ORDERED: HYDROCODONE/APAP 5-325MG TABLET GT PRN (22:45)
[2022-03-25] MEDS ORDERED: CLONIDINE HCL 0.1 MG TABLET GT PRN (22:45)
[2022-03-25] MEDS ORDERED: EPOETIN ALFA-EPBX 10,000 UNIT/ML VIAL SQ SCH (22:45)
[2022-03-25] MEDS ORDERED: LORAZEPAM 1 MG TABLET GT PRN (22:45)
[2022-03-25] MEDS ORDERED: ALBUTEROL SULFATE 1.25 MG/3 ML NEBU NEB PRN (22:45)
--- NOTE | 2022-03-25 23:30 | NUR ---
Admitted to [facility] floor under the care of Dr Rockwell, dx of sepsis/uti, patient open eyes but not response to verbal stimuli, respond to pain and tactile stimuli, on trach with vent, sat wnl, no sob no chest pain, no coughing noted, kept hob elevated, patient has GT patent and check for placement, patient has multiple open wounds, and gen body rashes, kept skin clean and dry, for wound and dietary consults, with right upper chest perma cath with dressing, RT suctioned and trach care done, cont to monitor.
--- NOTE | 2022-03-25 23:30 | NUR ---
Pt. admitted to telemetry unit, Room 312, under care of Dr. Houser. Report given to BRENDA Lincoln. Belongs List completed
[2022-03-25] MEDS ORDERED: ACETAMINOPHEN 325 MG TABLET GT PRN (23:45)
[2022-03-26] VITALS (8 sets, daily range): BP systolic 85–108; BP diastolic 42–57
[2022-03-26] MEDS: levETIRAcetam 500 MG TABLET GT SCH ×2 (01:23→08:52)
[2022-03-26] MEDS: CHLORHEXIDINE GLUCONATE 15 ML MOUTHWASH MM SCH ×3 (01:44→20:40)
[2022-03-26] MEDS ORDERED: MEROPENEM 500 MG VIAL IV ONE (01:55)
--- NOTE | 2022-03-26 02:04 | NUR ---
MEDICATION ZYVOX TAB AND EPOGEN SQ NOT AVAILABLE, NOT GIVEN.
[2022-03-26 02:08] LABS: HEMATOCRIT 21.1 % (36.7-47.1); MEAN CORPUSCULAR HEMOGLOBIN 29.4 uug (23.8-33.4); MEAN CORPUSCULAR VOLUME 92.3 fL (73.0-96.2); PLATELET COUNT (AUTO) 182 K/uL (152-348)
[2022-03-26 05:09] LABS: BASOPHILS % (MANUAL) 0 % (0-2); EOSINOPHILS % (MANUAL) 2 % (0-8); LYMPHOCYTES % (MANUAL) 10 % (20-40); MONOCYTES % (MANUAL) 9 % (2-10); NEUTROPHILS % (MANUAL) 79 % (42-75)
--- NOTE | 2022-03-26 06:03 | NUR ---
Patient asleep but eyes open when cleaning and turning, no sob no chest pain, sat wnl, tele monitor from A Fib to A Flutter to normal sinus rhythm, BP on low side but asymptomatic. cont to monitor.
[2022-03-26] MEDS ORDERED: LORAZEPAM 0.5 MG TABLET GT PRN (08:00)
--- NOTE | 2022-03-26 08:00 | NUR ---
PATIENREMAINS OBTUNDED CONTINUE WITH CURRENT VENT SETTINGS PORTEX#8 14-550-5-50% SATURATING 100%. AFEBRILE. REQUIRES OCCASIONAL SUCTIONING VIA TRACH, VERY MINIMAL WHITE SECRETIONS. AFEBRILE
[2022-03-26] MEDS: SENNOSIDES 1 TABLET GT SCH ×2 (08:52→16:57)
[2022-03-26] MEDS: MULTIVITAMINS,THERAPEUTIC TABLET GT SCH (08:52)
[2022-03-26] MEDS: CALCIUM CARB/VITAMIN D 500MG-200UNITS TABLET GT SCH (08:52)
[2022-03-26] MEDS: ZINC SULFATE 220 MG CAPSULE GT SCH (08:52)
[2022-03-26] MEDS ORDERED: PANTOPRAZOLE SODIUM 40 MG TABLET.DR PO SCH (09:00)
[2022-03-26] MEDS ORDERED: DOCUSATE SODIUM 100 MG CAPSULE PO SCH (09:00)
[2022-03-26] MEDS ORDERED: LINEZOLID 600 MG TABLET PO SCH (09:00)
[2022-03-26] MEDS ORDERED: LINEZOLID 600 MG TABLET GT SCH (09:26)
--- NOTE | 2022-03-26 10:00 | NUR ---
SEEN BY HOSPITALIST WITH ORDERS, AWAITING HEMODIALYSIS FOR BLOOD TRANSFUSION
--- NOTE | 2022-03-26 12:04 | NUR ---
WOUND CARE CONSULT: PT RESTING AT THIS TIME. REVIEWED CHART, NURSING DOCUMENTATION AND PHOTOS WHICH INDICATE MULTIPLE WOUNDS PRESENT ON ADMISSION. DR GONZALEZ AND DR WARREN CALLED FOR SURGICAL AND DPM CONSULTS. DISCUSSED SKIN PROTECTION WITH NURSING STAFF. MD IN AGREEMENT WITH PLAN OF CARE.
[2022-03-26] MEDS ORDERED: REMEDY ESSENTIAL ZINC PASTE 113 GM TOP PRN (12:15)
--- NOTE | 2022-03-26 13:18 | NUR ---
TRIED TO CALL ALLAN MATTHEWS (CONSERVATOR) INFORMING NEED FOR BLOOD TRANSFUSION WITH HEMODIALYSIS AND SAID SHE DOESN'T SIGN INVASIVE PROCEDURES AND THAT WE CAN ASK 2 DOCTORS TO SIGN.
[2022-03-26] MEDS: MEROPENEM 1 G in IV NORMAL SALINE 100 ML IV SCH (14:55)
[2022-03-26] MEDS: MIDODRINE HCL 5 MG TABLET GT SCH ×2 (15:41→20:41)
[2022-03-26] MEDS: ALBUMIN HUMAN 25% 50 ML IV PRN (15:45)
--- NOTE | 2022-03-26 15:46 | NUR ---
HD STARTED, BP 74/[address] MOELLER GIVE MIDODRINE AND 25% ALBUMIN. PATIENT REMAINS ON SR WARM AND DRY SKIN. 100% SATURATION ON CURRENT VENT SETTINGS 14-550-5-50 FIO2. CLOSELY MONITORED
[2022-03-26] MEDS: NEPRO 1000 ML GT PRN (15:52)
--- NOTE | 2022-03-26 16:38 | NUR ---
BLOOD TRANSFUSION STARTED WITH HD ORDERED. CLOSELY MONITORED. BP 92/48, HR 95 SR ON MONITOR
[2022-03-26] MEDS: ARGININE/GLUTAMINE/CALCIUM BMB 1 EACH POWD.PACK GT SCH (16:56)
--- NOTE | 2022-03-26 17:03 | NUR ---
BLOOD TRANSFUSION COMPLETED AND TOLERATED FAIRLY, NO REACTION NOTED
[2022-03-26] MEDS: EPOETIN ALFA-EPBX 10,000 UNIT/ML VIAL SQ SCH (17:11)
--- NOTE | 2022-03-26 17:12 | NUR ---
EPOETIN GIVEN WITH DH AT 1656
--- NOTE | 2022-03-26 17:20 | NUR ---
Pt remains stable on vent, portex 8 trach is patent and secure. No vent changes made today. Spo2 and respirations WNL, no resp. distress noted during shift. Trach/oral sxn prn. Pt transported to CT and back to room during shift. Backup trach and BVM at bedside. Continuous pulse ox at bedside. Vent plugged into red outlet. Will continue to monitor.
[2022-03-26] MEDS ORDERED: EPOETIN ALFA-EPBX 10,000 UNIT/ML VIAL IV ONE (18:30)
--- NOTE | 2022-03-26 18:39 | NUR ---
HEMODIALYSIS COMPLETED LATEST BP 97/56, TOLERATING FEEDING WELL, AFEBRILE
[2022-03-26] MEDS ORDERED: PANT40SU2 GT (18:47)
[2022-03-26] MEDS ORDERED: MIRALAX 17 GM POWD.PACK PO PRN (20:30)
[2022-03-26] MEDS: ATORVASTATIN 20 MG TABLET GT SCH (20:40)
[2022-03-26] MEDS: LINEZOLID 600 MG TABLET GT SCH (20:40)
[2022-03-26] MEDS: levETIRAcetam 500 MG/5 ML LIQUID UDC GT SCH (20:41)
--- NOTE | 2022-03-26 21:00 | NUR ---
Patient eyes open, check GT for placement and patentcy, noted with residual of more than 180cc undigested feeding, discard the residual, and held GTF at this time, no sob no chest pain, AFib on the monitor at this time, no s/s of pain or distress, turn and reposition, sat wnl, cont to monitor.
[2022-03-27 00:19] VITALS: BP 91/44
--- NOTE | 2022-03-27 00:30 | NUR ---
Patient has no GT residual at this time, resume feeding, tolerate well.
[2022-03-27] MEDS: MEROPENEM 1 G in IV NORMAL SALINE 100 ML IV SCH ×2 (03:24→13:14)
[2022-03-27] MEDS: REMEDY ESSENTIAL ZINC PASTE 113 GM TOP SCH ×3 (03:25→20:03)
[2022-03-27 04:22] VITALS: BP 90/36
[2022-03-27] MEDS: PANTOPRAZOLE ORAL SUSPENSION 40 MG SUSPDR.PKT GT SCH (07:03)
--- NOTE | 2022-03-27 07:56 | NUR ---
RECEIVED PATIENT WITH EYES WIDELY OPEN WITH NO EYE CONTACT, VENT SETTINGS 14-550-5-50% SATURATING 98-100%. NO SS OF DISTRESS OR PAIN. ORAL SUCTIONING DONE SMALL AMOUNT OF WHITISH SECRETION. SR ON MONITOR. CONTINUE TF TOLERATED AT 65 MLS/HR. HOB UP 45 DEGREES. AWAITING LABS
[2022-03-27 08:18] LABS: CARBON DIOXIDE 27 mmol/L (21-32); CHLORIDE 97 mmol/L (98-107); CREATININE 2.3 mg/dL (0.6-1.3); GLUCOSE 197 mg/dL (74-106); MAGNESIUM 2.4 mg/dL (1.8-2.4); PHOSPHOROUS 3.4 mg/dL (2.5-4.9); POTASSIUM 3.3 mmol/L (3.5-5.1); UREA NITROGEN, BLOOD 70 mg/dL (7-18)
[2022-03-27 08:22] LABS: ABG BASE EXCESS 1.5 mmol/L; ABG HCO3 24.8 mmol/L; ABG PCO2 33.7 mmHg (35.0-45.0); ABG PH 7.485 (7.350-7.450); ABG PO2 121.7 mmHg (75.0-100.0); ABG SITE LEFT RADIAL; ABG TOTAL HEMOGLOBIN 8.2 G/dL (13.5-18.0); MetHb 0.3 % (0.0-1.5); O2Hb 98.3 % (94.0-97.0); VENT MODE VENT - A/C; VT, ABG 550 mL
[2022-03-27 08:51] LABS: HEMATOCRIT 22.2 % (36.7-47.1); MEAN CORPUSCULAR HEMOGLOBIN 30.4 uug (23.8-33.4); MEAN CORPUSCULAR VOLUME 92.7 fL (73.0-96.2); PLATELET COUNT (AUTO) 209 K/uL (152-348)
[2022-03-27] MEDS: LINEZOLID 600 MG TABLET GT SCH ×2 (08:52→20:01)
[2022-03-27] MEDS: SENNOSIDES 1 TABLET GT SCH ×2 (08:53→16:52)
[2022-03-27] MEDS: MIDODRINE HCL 5 MG TABLET GT SCH ×3 (08:53→16:52)
[2022-03-27] MEDS: ZINC SULFATE 220 MG CAPSULE GT SCH (08:54)
[2022-03-27] MEDS: levETIRAcetam 500 MG/5 ML LIQUID UDC GT SCH ×2 (08:54→20:01)
[2022-03-27] MEDS: MULTIVITAMINS,THERAPEUTIC TABLET GT SCH (08:54)
[2022-03-27] MEDS: CALCIUM CARB/VITAMIN D 500MG-200UNITS TABLET GT SCH (08:54)
[2022-03-27] MEDS: DOCUSATE SODIUM 100 MG/10 ML LIQUID UDC GT SCH (08:54)
[2022-03-27] MEDS: CHLORHEXIDINE GLUCONATE 15 ML MOUTHWASH MM SCH ×2 (08:55→20:02)
[2022-03-27] MEDS: ARGININE/GLUTAMINE/CALCIUM BMB 1 EACH POWD.PACK GT SCH ×2 (08:57→16:53)
[2022-03-27 12:00] VITALS: BP 137/47
--- NOTE | 2022-03-27 12:00 | NUR ---
NO ACUTE CHANGE FROM MORNING ASSESSMENT, REQUIRES FREQUENT ORAL SUCTIONING. TOLERATING FEEDING WELL. AFEBRILE
[2022-03-27 13:02] LABS: BAND % (MANUAL) 2 % (0-10); BASOPHILS % (MANUAL) 1 % (0-2); EOSINOPHILS % (MANUAL) 8 % (0-8); LYMPHOCYTES % (MANUAL) 12 % (20-40); MONOCYTES % (MANUAL) 8 % (2-10); NEUTROPHILS % (MANUAL) 69 % (42-75)
--- NOTE | 2022-03-27 15:55 | NUR ---
COMPLETE BED BATH GIVEN AND WOUND TX ORDERED. ORDERED FOR HEMODIALYSIS NOTED
[2022-03-27 16:00] VITALS: BP 124/59
--- NOTE | 2022-03-27 16:28 | NUR ---
hemodialysis started at bedside, closely monitored
[2022-03-27] MEDS: ALBUMIN HUMAN 25% 50 ML IV PRN (16:47)
--- NOTE | 2022-03-27 16:48 | NUR ---
ALBUMIN GIVIA VIA HD PORT FOR BP 86/50. CLOSELY MONITORED
--- NOTE | 2022-03-27 18:21 | NUR ---
HEMODIALYSIS COMPLETED LATEST BP 92/50, NO FLUID OUT
[2022-03-27] MEDS: EPOETIN ALFA-EPBX 10,000 UNIT/ML VIAL SQ SCH (18:31)
[2022-03-27] MEDS: NEPRO 1000 ML GT PRN (19:45)
[2022-03-27] MEDS: ATORVASTATIN 20 MG TABLET GT SCH (20:01)
[2022-03-27 20:28] VITALS: BP 98/50
[2022-03-27] MEDS: SODIUM HYPOCHLORITE 0.25% (HALF STRENGTH) 480 ML BOTTLE TOP SCH (22:15)
[2022-03-27] MEDS: THERAHONEY GEL 1.5 OZ TUBE TOP SCH (22:15)
--- NOTE | 2022-03-28 00:01 | NUR ---
MALACHIQCASANDRA ON CONT OBANDO VENT WITH PORTEX [address] AND SECURED , WITH CURRENT VENT SETTINGS, A/C 14, VT 500ML, PEEP 5, FIO2 2 50%, PT DOES ASSIST AT TIMES, WITH NO VERBAL COMMUNICATIONS, WITH TID- CPT TO LEFT LUNG TOLL WELL, WITH CONT PULSE OXY AT BEDSIDE , SAT 98%, NO VENT CHANGES MADE, SUCTIONED LIGHT PALE YELL TINGE SECRETIONS, CLEAN TRACH, SUCTION MOUTH WITH YANKAUER, ALL VENT ALARMS GOOD, VENT PLUGGED INTO RED WALL OUT, BACK UP TRACH AND AMBU BAG AT BEDSIDE.,CHANGE HME Ingrid DOMINGOP Addendum: 03/28/22 at 0005 by NIKHIL OH RT Amended: Links added.
[2022-03-28] MEDS: MEROPENEM 1 G in IV NORMAL SALINE 100 ML IV SCH ×2 (01:36→13:10)
[2022-03-28 04:25] VITALS: BP 103/42
[2022-03-28] MEDS: PANTOPRAZOLE ORAL SUSPENSION 40 MG SUSPDR.PKT GT SCH (06:12)
[2022-03-28 07:22] LABS: HEMATOCRIT 23.2 % (36.7-47.1); MEAN CORPUSCULAR HEMOGLOBIN 29.6 uug (23.8-33.4); MEAN CORPUSCULAR VOLUME 91.4 fL (73.0-96.2); PLATELET COUNT (AUTO) 213 K/uL (152-348)
[2022-03-28 07:36] LABS: CARBON DIOXIDE 27 mmol/L (21-32); CHLORIDE 97 mmol/L (98-107); CREATININE 2.5 mg/dL (0.6-1.3); GLUCOSE 165 mg/dL (74-106); MAGNESIUM 2.3 mg/dL (1.8-2.4); PHOSPHOROUS 3.2 mg/dL (2.5-4.9); UREA NITROGEN, BLOOD 69 mg/dL (7-18)
[2022-03-28 07:56] VITALS: BP 112/38
[2022-03-28] MEDS: DOCUSATE SODIUM 100 MG/10 ML LIQUID UDC GT SCH (09:00)
[2022-03-28] MEDS: CHLORHEXIDINE GLUCONATE 15 ML MOUTHWASH MM SCH ×2 (09:00→21:09)
[2022-03-28] MEDS: MULTIVITAMINS,THERAPEUTIC TABLET GT SCH (09:01)
[2022-03-28] MEDS: levETIRAcetam 500 MG/5 ML LIQUID UDC GT SCH ×2 (09:01→21:09)
[2022-03-28] MEDS: SENNOSIDES 1 TABLET GT SCH ×2 (09:01→16:44)
[2022-03-28] MEDS: ARGININE/GLUTAMINE/CALCIUM BMB 1 EACH POWD.PACK GT SCH ×2 (09:01→16:44)
[2022-03-28] MEDS: MIDODRINE HCL 5 MG TABLET GT SCH ×3 (09:01→16:44)
[2022-03-28] MEDS: ZINC SULFATE 220 MG CAPSULE GT SCH (09:01)
[2022-03-28] MEDS: CALCIUM CARB/VITAMIN D 500MG-200UNITS TABLET GT SCH (09:01)
[2022-03-28] MEDS: LINEZOLID 600 MG TABLET GT SCH ×2 (09:02→21:09)
[2022-03-28] MEDS: REMEDY ESSENTIAL ZINC PASTE 113 GM TOP SCH ×2 (09:12→21:09)
[2022-03-28] MEDS: SODIUM HYPOCHLORITE 0.25% (HALF STRENGTH) 480 ML BOTTLE TOP SCH (09:23)
[2022-03-28] MEDS: THERAHONEY GEL 1.5 OZ TUBE TOP SCH (09:23)
[2022-03-28 12:18] VITALS: BP 114/39
[2022-03-28] MEDS ORDERED: POTASSIUM CHLORIDE 20 MEQ POWDER PACKET GT ONE (15:00)
[2022-03-28] MEDS: POTASSIUM CHLORIDE 50 ML IV SCH ×3 (15:30→17:49)
[2022-03-28 16:06] VITALS: BP 125/61
--- NOTE | 2022-03-28 18:13 | NUR ---
Patient tolerated care well throughout shift. Patient received 3 bags of potassium for hypokalemic levels of 3.0. Patient still on same vent settings; Portex 88, AC 14, FiO2 40, TV 550, PEEP 5. Wound care managed during shift with appropriate interventions and medications to help healing process. Patient receiving Nepro 65cc/hr, scheduled to stop at 0600 and begin again at 0800. Will endorse information to PM nurse. IV site patent and intact. Bed left in lowest position. Suctioned during shift with minimal pale/yellow secretions.
[2022-03-28] MEDS: NEPRO 1000 ML GT PRN (18:40)
[2022-03-28 20:00] VITALS: BP 122/42
[2022-03-28] MEDS: ATORVASTATIN 20 MG TABLET GT SCH (21:09)
[2022-03-29] MEDS: MEROPENEM 1 G in IV NORMAL SALINE 100 ML IV SCH ×2 (01:25→17:02)
--- NOTE | 2022-03-29 02:09 | NUR ---
PATIENT ON CONT WITH VLEA VENT ON WITH PORTEX # [address], WITH VENT SETTINGS, A/C 14, VT 550ML, PEEP5, 50%, PT DOES ASSIST AT TIMES, GOOD COUGH EFFORT, TRACH CARE DONE, SUCTION LIGHT PALE YELL TINGE SECRETIONS, AND SUCTION MOUTH WITH YANKAUER, CHANGE HME, CHECK CUFF, NO VENT CHANGES MADE, ALL VENT ALARMS GOOD, VENT PLUGGED INTO RED WALL OUT LET, WITH AMBU BAG AT BEDSIDE, WITH [place] UP TRACH,PT WITH CONT PULSE OXY AT BEDSIDE, SAT 98 - 99% . Wilmar DOMINGOP Addendum: 03/29/22 at 0213 by NIKHIL OH RT Amended: Links added.
[2022-03-29 04:00] VITALS: BP 118/54
--- NOTE | 2022-03-29 04:19 | NUR ---
CORRECTION, PATIENT HAS BEEN ON FIO2 @ 40% ON OBANDO VENT Ingrid OH CLIMATOLOGY TEACHER Addendum: 03/29/22 at 0420 by NIKHIL OH RT Amended: Links added.
[2022-03-29] MEDS: PANTOPRAZOLE ORAL SUSPENSION 40 MG SUSPDR.PKT GT SCH (05:46)
[2022-03-29 07:05] LABS: CARBON DIOXIDE 26 mmol/L (21-32); CHLORIDE 98 mmol/L (98-107); CREATININE 2.8 mg/dL (0.6-1.3); GLUCOSE 152 mg/dL (74-106); POTASSIUM 3.6 mmol/L (3.5-5.1)
[2022-03-29 07:07] LABS: UREA NITROGEN, BLOOD 87 mg/dL (7-18)
[2022-03-29 08:00] VITALS: BP 110/66
[2022-03-29] MEDS ORDERED: AMIODARONE HCL IV 150 MG in IV DEXTROSE 5% 100 ML IV ONE (09:00)
[2022-03-29] MEDS: DOCUSATE SODIUM 100 MG/10 ML LIQUID UDC GT SCH (09:02)
[2022-03-29] MEDS: levETIRAcetam 500 MG/5 ML LIQUID UDC GT SCH ×2 (09:02→21:16)
[2022-03-29] MEDS: CALCIUM CARB/VITAMIN D 500MG-200UNITS TABLET GT SCH (09:03)
[2022-03-29] MEDS: MULTIVITAMINS,THERAPEUTIC TABLET GT SCH (09:03)
[2022-03-29] MEDS: CHLORHEXIDINE GLUCONATE 15 ML MOUTHWASH MM SCH ×2 (09:04→21:17)
[2022-03-29] MEDS: MIDODRINE HCL 5 MG TABLET GT SCH ×3 (09:04→16:46)
[2022-03-29] MEDS: LINEZOLID 600 MG TABLET GT SCH ×2 (09:04→21:16)
[2022-03-29] MEDS: ZINC SULFATE 220 MG CAPSULE GT SCH (09:04)
[2022-03-29] MEDS: SENNOSIDES 1 TABLET GT SCH ×2 (09:04→16:46)
[2022-03-29] MEDS: ARGININE/GLUTAMINE/CALCIUM BMB 1 EACH POWD.PACK GT SCH ×2 (09:05→16:48)
[2022-03-29] MEDS: SODIUM HYPOCHLORITE 0.25% (HALF STRENGTH) 480 ML BOTTLE TOP SCH (09:05)
[2022-03-29] MEDS: THERAHONEY GEL 1.5 OZ TUBE TOP SCH (09:05)
[2022-03-29] MEDS: REMEDY ESSENTIAL ZINC PASTE 113 GM TOP SCH ×2 (09:05→21:17)
--- NOTE | 2022-03-29 09:35 | NUR ---
Notified by Coding Coordinator, Mike of patient's rhythm. STAT EKG ordered. Resulted in A-Fib with RVC. Dr. Raya notified and with orders for Amiodarone drip. Patient now starting bolus. Coding Coordinator notified. Will continue to observe patient throughout shift.
[2022-03-29] MEDS: AMIODARONE HCL IV 450 MG in IV DEXTROSE 5% 250 ML IV PRN (09:59)
--- NOTE | 2022-03-29 10:05 | NUR ---
Patient converted to Sinus Rhythm at 0957. Dr. Raya notified.
--- NOTE | 2022-03-29 10:51 | NUR ---
Dr. Raya notified. Order to continue drip for 24 hours.
[2022-03-29 12:00] VITALS: BP 110/40
--- NOTE | 2022-03-29 16:05 | NUR ---
Amiodarone titrated down to 16.6mL/hr. Patient receiving medication well and still in sinus rhythm. 24 hour mamta set at 1000 on 03/30/22. Will endorse information to PM nurse.
[2022-03-29] MEDS: EPOETIN ALFA-EPBX 10,000 UNIT/ML VIAL SQ SCH (16:46)
[2022-03-29 20:00] VITALS: BP 131/55
--- NOTE | 2022-03-29 20:00 | NUR ---
Received patient lying in bed. Asleep, arouse to tactile stimuli. Non-verbal,but opens his eyes. In no apparent distress. Trach to vent in place. O2 sat at 99% at this time. NSR on tele with HR of 74/min. GT feeding infusing. Amiodarone drip infusing to left upper arm midline. Right hand PIV intact and patent. Wound site with dressing intact, dry and clean. Turned and repositioned for comfort. Safety measure initiated and call light within reached.
[2022-03-29] MEDS: ATORVASTATIN 20 MG TABLET GT SCH (21:16)
[2022-03-30] MEDS: NEPRO 1000 ML GT PRN (00:35)
[2022-03-30] MEDS: AMIODARONE HCL IV 450 MG in IV DEXTROSE 5% 250 ML IV PRN (00:48)
[2022-03-30 04:00] VITALS: BP 98/47
[2022-03-30] MEDS: MEROPENEM 1 G in IV NORMAL SALINE 100 ML IV SCH ×2 (05:07→17:21)
--- NOTE | 2022-03-30 05:21 | NUR ---
In no acute distress. Calm and comfortable. Suctioned secretions PRN and able to obtain whitish discharge. O2 sat at 99%. NSR on tele with HR of 83/min. GT feeding and flushing well tolerated. Amiodarone drip infusing to left upper arm midline. Right hand PIV remains intact and patent. No adverse reaction noted from IV antibiotics. Safety measure maintained and call light within reached.
[2022-03-30] MEDS: PANTOPRAZOLE ORAL SUSPENSION 40 MG SUSPDR.PKT GT SCH (06:19)
[2022-03-30 07:52] VITALS: BP 100/44
[2022-03-30] MEDS: ZINC SULFATE 220 MG CAPSULE GT SCH (08:44)
[2022-03-30] MEDS: MIDODRINE HCL 5 MG TABLET GT SCH ×3 (08:44→16:21)
[2022-03-30] MEDS: SENNOSIDES 1 TABLET GT SCH ×2 (08:44→16:21)
[2022-03-30] MEDS: CHLORHEXIDINE GLUCONATE 15 ML MOUTHWASH MM SCH ×2 (08:45→20:47)
[2022-03-30] MEDS: MULTIVITAMINS,THERAPEUTIC TABLET GT SCH (08:45)
[2022-03-30] MEDS: CALCIUM CARB/VITAMIN D 500MG-200UNITS TABLET GT SCH (08:45)
[2022-03-30] MEDS: LINEZOLID 600 MG TABLET GT SCH ×2 (08:45→20:47)
[2022-03-30] MEDS: levETIRAcetam 500 MG/5 ML LIQUID UDC GT SCH ×2 (08:45→20:47)
[2022-03-30] MEDS: SODIUM HYPOCHLORITE 0.25% (HALF STRENGTH) 480 ML BOTTLE TOP SCH (08:45)
[2022-03-30] MEDS: THERAHONEY GEL 1.5 OZ TUBE TOP SCH (08:45)
[2022-03-30] MEDS: DOCUSATE SODIUM 100 MG/10 ML LIQUID UDC GT SCH (08:45)
[2022-03-30] MEDS: REMEDY ESSENTIAL ZINC PASTE 113 GM TOP SCH ×2 (08:45→22:11)
[2022-03-30] MEDS: ARGININE/GLUTAMINE/CALCIUM BMB 1 EACH POWD.PACK GT SCH ×2 (08:46→16:21)
[2022-03-30] MEDS: AMIODARONE HCL 200 MG TABLET PO SCH ×2 (10:38→20:47)
[2022-03-30 12:38] VITALS: BP 115/53
[2022-03-30 12:47] LABS: HEMATOCRIT 23.8 % (36.7-47.1); MEAN CORPUSCULAR HEMOGLOBIN 29.6 uug (23.8-33.4); PLATELET COUNT (AUTO) 261 K/uL (152-348)
[2022-03-30 12:55] LABS: CARBON DIOXIDE 27 mmol/L (21-32); CHLORIDE 97 mmol/L (98-107); CREATININE 2.8 mg/dL (0.6-1.3); GLUCOSE 203 mg/dL (74-106); MAGNESIUM 2.3 mg/dL (1.8-2.4); POTASSIUM 3.4 mmol/L (3.5-5.1)
[2022-03-30 13:01] LABS: UREA NITROGEN, BLOOD 93 mg/dL (7-18)
--- NOTE | 2022-03-30 13:56 | NUR ---
Critical Lab Value, BUN: 93. Value reported to Phyllis VAZQUEZ.
[2022-03-30 15:54] VITALS: BP 119/49
--- NOTE | 2022-03-30 18:23 | NUR ---
Patient resting comfortably in bed with no signs of distress or discomfort. PICC line placed on patient on left upper arm. PICC line patent and intact, running antibiotics. G-Tube feeding of Nepro running at 65cc/hr with an overall goal of 22 hours, scheduled to stop at 0600 and begin again at 0800 03/31/22. Wounds managed during shift with appropriate interventions. No distress noted during shift. Vital signs within normal range. Bed left in lowest position. Comfort measures provided. Will endorse information to PM nurse.
[2022-03-30 20:21] VITALS: BP 130/61
[2022-03-30] MEDS: ATORVASTATIN 20 MG TABLET GT SCH (20:47)
[2022-03-31 00:03] VITALS: BP 121/62
[2022-03-31 04:00] VITALS: BP 112/60
[2022-03-31] MEDS: MEROPENEM 1 G in IV NORMAL SALINE 100 ML IV SCH ×2 (05:18→16:52)
[2022-03-31] MEDS: PANTOPRAZOLE ORAL SUSPENSION 40 MG SUSPDR.PKT GT SCH (06:01)
[2022-03-31 07:08] LABS: MEAN CORPUSCULAR HEMOGLOBIN 29.4 uug (23.8-33.4); PLATELET COUNT (AUTO) 263 K/uL (152-348)
[2022-03-31 07:47] LABS: CARBON DIOXIDE 27 mmol/L (21-32); CHLORIDE 100 mmol/L (98-107); CREATININE 2.9 mg/dL (0.6-1.3); GLUCOSE 181 mg/dL (74-106); MAGNESIUM 2.3 mg/dL (1.8-2.4); PHOSPHOROUS 3.3 mg/dL (2.5-4.9); POTASSIUM 3.4 mmol/L (3.5-5.1)
--- NOTE | 2022-03-31 08:00 | NUR ---
Pt is in no acute distress. Vent settings as ordered. RT here to suction and trache care. Pt obtunded and unresponsive. Residual noted @50cc/hr. GTube feeding started as ordered placement audible on stomach. Call light is within reach.
[2022-03-31 08:03] LABS: UREA NITROGEN, BLOOD 106 mg/dL (7-18)
[2022-03-31] MEDS: levETIRAcetam 500 MG/5 ML LIQUID UDC GT SCH ×2 (08:46→21:16)
[2022-03-31] MEDS: DOCUSATE SODIUM 100 MG/10 ML LIQUID UDC GT SCH (08:46)
[2022-03-31] MEDS: CHLORHEXIDINE GLUCONATE 15 ML MOUTHWASH MM SCH ×2 (08:46→21:17)
[2022-03-31] MEDS: ZINC SULFATE 220 MG CAPSULE GT SCH (08:47)
[2022-03-31] MEDS: SENNOSIDES 1 TABLET GT SCH ×2 (08:47→16:28)
[2022-03-31] MEDS: CALCIUM CARB/VITAMIN D 500MG-200UNITS TABLET GT SCH (08:47)
[2022-03-31] MEDS: MULTIVITAMINS,THERAPEUTIC TABLET GT SCH (08:47)
[2022-03-31] MEDS: MIDODRINE HCL 5 MG TABLET GT SCH ×3 (08:47→16:28)
[2022-03-31] MEDS: AMIODARONE HCL 200 MG TABLET PO SCH ×2 (08:47→21:17)
[2022-03-31] MEDS: ARGININE/GLUTAMINE/CALCIUM BMB 1 EACH POWD.PACK GT SCH ×2 (08:48→16:28)
[2022-03-31] MEDS: REMEDY ESSENTIAL ZINC PASTE 113 GM TOP SCH ×2 (08:48→21:18)
[2022-03-31] MEDS: LINEZOLID 600 MG TABLET GT SCH ×2 (08:48→21:17)
[2022-03-31] MEDS: SODIUM HYPOCHLORITE 0.25% (HALF STRENGTH) 480 ML BOTTLE TOP SCH (08:49)
[2022-03-31] MEDS: THERAHONEY GEL 1.5 OZ TUBE TOP SCH (08:49)
[2022-03-31 08:54] VITALS: BP 127/43
[2022-03-31 12:06] VITALS: BP 122/53
[2022-03-31 16:07] VITALS: BP 104/52
--- NOTE | 2022-03-31 18:00 | NUR ---
Dr contreras aware of cardiac rythm changes of patient. Pt in and out of afib, snr and a flutter. No new order received from cardio. Notified case management of plan re IV x 6 weeks on patient. Pt curently on SNR @ 70's. Pt had residual of 50cc in G-TUBE.
[2022-03-31 20:00] VITALS: BP 113/44
--- NOTE | 2022-03-31 21:00 | NUR ---
Patient noted with GT residual of more than 200 cc, held feeding for two hours at this time, cont to monitor.
[2022-03-31] MEDS: ATORVASTATIN 20 MG TABLET GT SCH (21:17)
[2022-04-01 00:03] VITALS: BP 110/50
[2022-04-01 04:00] VITALS: BP 108/46
[2022-04-01] MEDS: PANTOPRAZOLE ORAL SUSPENSION 40 MG SUSPDR.PKT GT SCH (06:17)
[2022-04-01] MEDS: MEROPENEM 1 G in IV NORMAL SALINE 100 ML IV SCH (06:17)
[2022-04-01 06:47] LABS: HEMATOCRIT 24.9 % (36.7-47.1); MEAN CORPUSCULAR HEMOGLOBIN 29.7 uug (23.8-33.4); MEAN CORPUSCULAR VOLUME 92.2 fL (73.0-96.2); PLATELET COUNT (AUTO) 284 K/uL (152-348)
--- NOTE | 2022-04-01 07:01 | NUR ---
Patient eyes open, hob elevated, no sob no chest pain, patient sinus rhythm at this time but also become AFib after suction for few minutes, then converted to sinus rhythm. suctioned as needed, q 2 hrs, no s/s of distress.
[2022-04-01 07:06] LABS: CARBON DIOXIDE 28 mmol/L (21-32); CHLORIDE 100 mmol/L (98-107); CREATININE 3.2 mg/dL (0.6-1.3); GLUCOSE 190 mg/dL (74-106); MAGNESIUM 2.4 mg/dL (1.8-2.4); PHOSPHOROUS 3.8 mg/dL (2.5-4.9); POTASSIUM 3.4 mmol/L (3.5-5.1)
[2022-04-01 07:07] LABS: UREA NITROGEN, BLOOD 116 mg/dL (7-18)
[2022-04-01 07:32] VITALS: BP 119/48
[2022-04-01] MEDS: ZINC SULFATE 220 MG CAPSULE GT SCH (08:40)
[2022-04-01] MEDS: SENNOSIDES 1 TABLET GT SCH ×2 (08:40→16:21)
[2022-04-01] MEDS: CALCIUM CARB/VITAMIN D 500MG-200UNITS TABLET GT SCH (08:40)
[2022-04-01] MEDS: MULTIVITAMINS,THERAPEUTIC TABLET GT SCH (08:40)
[2022-04-01] MEDS: LINEZOLID 600 MG TABLET GT SCH (08:42)
[2022-04-01] MEDS: ARGININE/GLUTAMINE/CALCIUM BMB 1 EACH POWD.PACK GT SCH ×2 (08:42→16:21)
[2022-04-01] MEDS: MIDODRINE HCL 5 MG TABLET GT SCH ×3 (08:42→16:21)
[2022-04-01] MEDS: CHLORHEXIDINE GLUCONATE 15 ML MOUTHWASH MM SCH (08:42)
[2022-04-01] MEDS: DOCUSATE SODIUM 100 MG/10 ML LIQUID UDC GT SCH (08:42)
[2022-04-01] MEDS: levETIRAcetam 500 MG/5 ML LIQUID UDC GT SCH (08:42)
[2022-04-01] MEDS: AMIODARONE HCL 200 MG TABLET PO SCH (08:44)
[2022-04-01] MEDS: SODIUM HYPOCHLORITE 0.25% (HALF STRENGTH) 480 ML BOTTLE TOP SCH (08:44)
[2022-04-01] MEDS: THERAHONEY GEL 1.5 OZ TUBE TOP SCH (08:45)
[2022-04-01] MEDS: REMEDY ESSENTIAL ZINC PASTE 113 GM TOP SCH (08:45)
[2022-04-01] MEDS ORDERED: DOCU50LI GT (10:04)
[2022-04-01] MEDS ORDERED: LINE600T15 GT (10:04)
[2022-04-01] MEDS ORDERED: MIDO5TAB4 GT (10:04)
[2022-04-01] MEDS ORDERED: MERO1VIA23 IV (10:04)
[2022-04-01] MEDS ORDERED: SODI480S2 TOP (10:04)
[2022-04-01] MEDS ORDERED: AMIO200T6 PO (10:04)
[2022-04-01 11:33] VITALS: BP 134/71
[2022-04-01] MEDS ORDERED: DOSING PER PHARMACY-AMIKACIN IV XX PRN (15:15)
[2022-04-01 16:00] VITALS: BP 129/56
[2022-04-01] MEDS ORDERED: AMIKACIN SULFATE 500 MG/2 ML VIAL IV ONE (16:00)
[2022-04-01] MEDS ORDERED: AMIKACIN 500 MG in IV DEXTROSE 5% 100 ML IV ONE (16:00)
[2022-04-01 16:21] VITALS: BP 127/57
[2022-04-01] MEDS: EPOETIN ALFA-EPBX 10,000 UNIT/ML VIAL SQ SCH (16:21)
[2022-04-01] MEDS ORDERED: MEROPENEM 0.5 G in IV NORMAL SALINE 50 ML IV SCH (18:00)
--- NOTE | 2022-04-01 20:00 | NUR ---
Called [facility] and report given to BRENDA Roman and states understanding.
--- NOTE | 2022-04-01 20:24 | NUR ---
Patient discharge to [facility], picked up by [facility] ambulance #[id number], accompanied by 3 paramedics. Patient non-verbal but with eyes open. In no acute distress. VS WNL. Belongings and paper work provided. All belongings with patient.
[2022-04-03 13:07] LABS: HEPATITIS B SURFACE AG Negative (Negative)
== END 2022-04-01 20:35 | DRG 870 ==
LOC: ER 17:46 → TELE3 23:15 → TELE-TD3 23:45
PROVIDERS: ADMIT Internal Medicine; ATTEND Registered Nurse
PROC: 5A1955Z Respiratory Ventilation, Greater than 96 Consecutive Hours (ICD-10-PCS; principal; 2022-03-25)
PROC: 05H633Z Insertion of Infusion Device into Left Subclavian Vein, Percutaneous Approach (ICD-10-PCS; 2022-03-25)
PROC: B547ZZA Ultrasonography of Left Subclavian Vein, Guidance (ICD-10-PCS; 2022-03-25)
PROC: 30233N1 Transfusion of Nonautologous Red Blood Cells into Peripheral Vein, Percutaneous Approach (ICD-10-PCS; 2022-03-26)
PROC: 5A1D70Z Performance of Urinary Filtration, Intermittent, Less than 6 Hours Per Day (ICD-10-PCS; 2022-03-26)
DX: A41.9 Sepsis, unspecified organism (principal); G92.8 Other toxic encephalopathy; L89.214 Pressure ulcer of right hip, stage 4; L89.154 Pressure ulcer of sacral region, stage 4; L89.814 Pressure ulcer of head, stage 4; L89.224 Pressure ulcer of left hip, stage 4; R53.2 Functional quadriplegia; N18.6 End stage renal disease; J15.9 Unspecified bacterial pneumonia; J96.22 Acute and chronic respiratory failure with hypercapnia; N39.0 Urinary tract infection, site not specified; D68.59 Other primary thrombophilia; E87.2 Acidosis; I48.92 Unspecified atrial flutter; Z99.11 Dependence on respirator [ventilator] status; I13.2 Hypertensive heart and chronic kidney disease with heart failure and with stage 5 chronic kidney disease, or end stage renal disease; M86.18 Other acute osteomyelitis, other site; M86.652 Other chronic osteomyelitis, left thigh; M86.651 Other chronic osteomyelitis, right thigh; L97.429 Non-pressure chronic ulcer of left heel and midfoot with unspecified severity; L97.419 Non-pressure chronic ulcer of right heel and midfoot with unspecified severity; J90 Pleural effusion, not elsewhere classified; I31.3 Pericardial effusion (noninflammatory); J98.11 Atelectasis; J44.0 Chronic obstructive pulmonary disease with (acute) lower respiratory infection; D63.1 Anemia in chronic kidney disease; E11.22 Type 2 diabetes mellitus with diabetic chronic kidney disease; E78.5 Hyperlipidemia, unspecified; E87.6 Hypokalemia; F01.50 Vascular dementia, unspecified severity, without behavioral disturbance, psychotic disturbance, mood disturbance, and anxiety; G40.909 Epilepsy, unspecified, not intractable, without status epilepticus; R13.10 Dysphagia, unspecified; Z79.4 Long term (current) use of insulin; Z93.1 Gastrostomy status; Z93.0 Tracheostomy status; Z90.49 Acquired absence of other specified parts of digestive tract; Z88.1 Allergy status to other antibiotic agents; Z86.73 Personal history of transient ischemic attack (TIA), and cerebral infarction without residual deficits; Z99.2 Dependence on renal dialysis; B96.1 Klebsiella pneumoniae [K. pneumoniae] as the cause of diseases classified elsewhere; I25.10 Atherosclerotic heart disease of native coronary artery without angina pectoris; I48.0 Paroxysmal atrial fibrillation; I50.9 Heart failure, unspecified; Z20.822 Contact with and (suspected) exposure to COVID-19; R65.20 Severe sepsis without septic shock; E11.69 Type 2 diabetes mellitus with other specified complication; Z74.09 Other reduced mobility; K56.41 Fecal impaction; Z74.01 Bed confinement status; E11.621 Type 2 diabetes mellitus with foot ulcer; D64.9 Anemia, unspecified; B95.2 Enterococcus as the cause of diseases classified elsewhere; Z79.899 Other long term (current) drug therapy; I48.91 Unspecified atrial fibrillation
CPT/HCPCS: 36415; 36600; 70030-TC; 71045; 71250; 76604; 83605; 83735; 84100; 84484; 85025; 85730; 86706; 86850; 86900; 86901; 86920; 87040; 87070; 87077; 87086; 87340; 90937; 93005; 93307; 94003; 94760; 99082-TC; A4663; A6209; A6213; G0378; J0278; J0282; J0696; J0885; J2185; J3480; J3490; J7040; J7050; J7070; P9016; P9047